=== PATIENT | male | born 1950 | race Two or more races ===

== ENCOUNTER 2023-04-20 05:30 | Day surgery (SDC) | payer OTHER ==
[2023-04-19 11:38] LABS: HEMATOCRIT 45.3 % (39.0-48.0); HEMOGLOBIN 14.9 g/dL (13-16.00); MEAN CELL VOLUME 91.4 fL (80.0-100.00); MEAN CORPUSCULAR HGB CONC 32.8 g/dl (32.0-36.0); PLATELET COUNT 168 K/uL (150-450); RED BLOOD COUNT 4.96 M/uL (4.00-6.00); RED CELL DISTRIBUTION WIDTH 13.1 % (11.5-14.5)
[2023-04-19 11:43] LABS: PH,URINE 5.5 (5.0-8.0); URINE APPEARANCE Clear; URINE BILIRRUBIN Negative (NEGATIVE); URINE BLOOD Trace; URINE COLOR Yellow; URINE GLUCOSE Negative (NEGATIVE); URINE LEUKOCYTE Negative; URINE NITRATE Negative; URINE PROTEIN Negative (NEGATIVE); URINE UROBILINOGEN 0.2 E.U./dl
[2023-04-19 11:48] LABS: URINE BACTERIA 13.8 uL (0.0-1933); URINE EPITHELIAL CELLS 1.6 uL (0.0-38.8); URINE RBC 21.1 uL (0.0-20.8)
[2023-04-19 11:56] LABS: INR 1.04; PARTIAL THROMBOPLASTIN TIME 26.5 SECONDS (22.0-34.0); PROTHROMBIN TIME 10.9 SECONDS (9.0-11.5)
[2023-04-19 12:02] LABS: CALCIUM 9.2 mg/dL (8.5-10.1); CREATININE SERUM 1.07 mg/dL (0.70-1.30); GFR 67.56; POTASSIUM 4.52 mEq/L (3.5-5.1)
[~2023-04-20] VITALS: Ht 160 cm; Wt 61.2 kg
[~2023-04-20 05:30] MED LIST: ZALATAN
== END 2023-04-20 13:35 | disposition home or self-care (01) ==
LOC: CIR.AMB 05:30
PROVIDERS: ATTEND Urology
DX: D07.4 Carcinoma in situ of penis (principal); B07.8 Other viral warts; A63.0 Anogenital (venereal) warts; R97.20 Elevated prostate specific antigen [PSA]; I10 Essential (primary) hypertension; Z20.822 Contact with and (suspected) exposure to COVID-19